=== PATIENT | female | born 1990 | race Two or more races ===

== ENCOUNTER 2017-11-10 10:14 | Observation (INO) | payer MEDICAID ==
[2017-11-10] MEDS ORDERED: LR 1,000 ML IV ONE (10:36)
[2017-11-10] MEDS ORDERED: LIDOCAINE 1% 2 ML INJ ID PRN (10:36)
[2017-11-10] MEDS ORDERED: MIDAZOLAM 2 MG/2 ML VIAL IVP ONE (12:05)
--- NOTE | 2017-11-10 12:05 | PDANEPAE ---
ANE History of Present Illness Robotic assisted Hysterectomy ANE Past Medical History - Cardiovascular History Hx Hypertension: No Hx Arrhythmias: No Hx Chest Pain: No Hx Coronary Artery / Peripheral Vascular Disease: Yes Hx CHF / Valvular Disease: No Hx Palpitations: No Cardiovascular History Comment: aortic stenosis- sees airline transport pilot in [place] - Pulmonary History Hx COPD: No Hx Asthma/Reactive Airway Disease: No Hx Recent Upper Respiratory Infection: No Hx Oxygen in Use at Home: No Hx Sleep Apnea: No Sleep Apnea Screening Result - Last Documented: Negative - Neurologic History Hx Cerebrovascular Accident: No Hx Seizures: No Hx Dementia: No - Endocrine History Hx Diabetes: No Hypothyroid: No Hyperthyroid: No Obesity: no - Renal History Hx Renal Disorders: Yes Renal History Comment: chronic kidney stones. hx of bladder dilations. interstitial cystitis. bladder spasms - Liver History Hx Hepatic Disorders: No - Neurological & Psychiatric Hx Hx Neurological and Psychiatric Disorders: Yes Neurological / Psychiatric History Comment: anxiety - Cancer History Hx Cancer: No - Congenital Disorder History Hx Congenital Disorders: No - GI History GERD: no Hx Gastrointestinal Disorders: Yes Gastrointestinal History Comment: occ constipation- on linzess - Other Health History Other Health History: chronic pain - Chronic Pain History Chronic Pain: Yes (kidneys, pelvic pain, back) - Surgical History Prior Surgeries: angioplasty at 3 mos, 13 yo. appy, ovary biopsy. kidney stones removed. bladder dilation. exp lap, lysis of adhesions and bladder dilation 03/2017 ANE Review of Systems Review of Systems: - Exercise capacity METS (RN): 4 METS ANE Patient History - Allergies Allergies/Adverse Reactions: tramadol Allergy (Verified 10/21/17 10:51) gets spacey and itchy - Home Medications Home medications: home medication list seen and reviewed Home Medications: DILAUDID 2 mg PO Q6H 10/21/17 [Last Taken 11/07/17] Linzess 145 mcg PO DAILY 10/21/17 [Last Taken 10/27/17] Vitamin D2 mg PO 10/21/17 [Last Taken 11/03/17] Zoloft 25mg (*) 25 mg PO HS 10/21/17 [Last Taken 11/09/17 08:00] oxyCODONE IR 15 mg PO Q6H 10/21/17 [Last Taken 11/09/17 16:00] - NPO status NPO Since - Liquids (Date): 11/09/17 NPO Since - Liquids (Time): 03:00 NPO Since - Solids (Date): 11/09/17 NPO Since - Solids (Time): 20:00 - Anes Hx Anes Hx: no prior problems - Smoking Hx Smoking Status: Never smoked Marijuana use: No - Alcohol Use Alcohol Use: None - Family Anes Hx Family Anes Hx: none Family Hx Anesthesia Complications: none ANE Labs/Vital Signs - Vital Signs Blood Pressure: 119/82 Heart Rate: 68 Respiratory Rate: 16 O2 Sat (%): 98 Height: 157.48 cm Weight: 63.503 kg ANE Physical Exam - Airway Neck exam: FROM Mallampati Score: Class 1 Mouth exam: normal dental/mouth exam - Pulmonary Pulmonary: no respiratory distress, no rales or rhonchi - Cardiovascular Cardiovascular: regular rate and rhythym, systolic murmur, diastolic murmur - ASA Status ASA Status: II ANE Anesthesia Plan Anesthesia Plan: general endotracheal anesthesia
--- NOTE | 2017-11-10 12:59 | PDGENHP ---
History and Physical History and Physical: Assessment and Plan: 1. Preoperative examination - CBC with Auto Differential; Future 2. Endometriosis determined by laparoscopy Melissa has extensive endometriosis especially throughout the posterior cul-de-sac , bilateral ovarian fossa is, and uterosacral ligaments. Given her intraoperative photos and description of the operative procedure I am certain she has persistent deep endometriosis which will continue to be resistant to medical management. Her best option is aggressive surgical excision. Because of her aortic stenosis she no longer desires children. As a result she is requesting the most definitive surgical treatment possible which likely will involve a hysterectomy with possible removal of her ovaries depending upon the extent of disease. We again reviewed all conservative and surgical options. At the end of our discussion informed consent was obtained. All questions were answered. 3. Dysmenorrhea 4. Dyspareunia, female Subjective: Patient ID: Melissa Davis is a 27 y.o. female who presents to [facility] for endometriosis. BAUDILIO Hoovers a 27-year-old para 1 woman who presents for endometriosis. She developed pelvic pain starting around age 16. She later underwent an appendectomy where the surgeon found endometriosis in the pelvis. Apparently an ovary was biopsied documenting endometriosis. She has tried multiple control pills none of which have resulted in significant benefit. Currently she is not on any contraception. She discontinued the pill secondary to bloating and moodiness. She has tried Depo-Provera and NuvaRing also with no significant benefit. She has not been on Lupron in the past. Her medical history significant for it her aortic stenosis interstitial cystitis and recurrent kidney stones. She is under the care of a pain management physician taking Oxy IR15 mg,Dilaudid 2 mg,and Valium. She has undergone an appendectomy 2006 laparoscopy 2017 ureteroscopy with ureteral stent placement and 2 angioplasties. Her product design manager is Dr. Galdamez in [place]. She brought a copy of her intraoperative photos and OP note from March 2017. She has significant vesicular type endometriosis throughout the posterior cul-de-sac , bilateral uterosacral ligaments, pelvic sidewalls, as well as lesions on the right diaphragm. The surgeon fulgurated these lesions.. She had no relief of her symptoms requiring continued narcotic use. Given her persistent symptoms and description of the operative procedure I am certain she has persistent deep endometriosis as well as tissue contraction and scarring.We reviewed all conservative and surgical options. She wishes to proceed with robotic excision of endometriosis. Given her aortic stenosis and the significant risk of , she has completed her childbearing. As a result she is requesting hysterectomy as well. PastMedicalHistory Past Medical History: Diagnosis Date Aortic stenosis bicuspid aortic valve status post valvuloplasty x2 at 3 months and 13 years of age Congenital anomaly of heart aortic stenosis Endometriosis Heart disease aortic stenosis Interstitial cystitis Kidney stone chronic stones PastSurgicalHistory Past Surgical History: Procedure Laterality Date AORTIC VALVULOPLASTY at 3 months of age and again at age 13 BLADDER SURGERY 2011 for interstitial cystitis CYSTOURETHROSCOPY 2013 with removal of kidney stone KIDNEY STONE SURGERY LAPAROSCOPIC APPENDECTOMY 2006 appendix was normal, endometriosis was found to be the cause of pain CURRENT MEDICATIONS: Current Outpatient Prescriptions Medication Sig diazePAM (VALIUM) 5 mg tablet Take 5 mg by mouth daily as needed. HYDROmorphone (DILAUDID) 2 mg tablet Take 2 mg by mouth every 4 hours as needed. oxycodone 20 mg IR tablet Take 20 mg by mouth every 6 hours as needed for Pain. No current facility-administered medications for this visit. Facility-Administered Medications Ordered in Other Visits Medication Dose Route Frequency Provider Last Rate Last Dose fentaNYL PF (SUBLIMAZE) injection Epidural PRN Forrest Barbosa MD 50 mcg at 09/26/16 1753 lidocaine-epinephrine 1.5 %-1:200,000 injection Epidural PRN Forrest Barbosa MD 3 mL at 09/26/16 1750 ALLERGIES: Tramadol I have reviewed, verified and agree with the past medical, surgical, , family, social and ROS history as documented by the RN today. Objective: Vital Signs: Visit Vitals BP 104/60 Pulse 88 Temp 36.6 C (97.9 F) (Temporal Artery) Resp 14 Ht 1.575 m (5' 2") Wt 68.1 kg (150 lb 3.2 oz) SpO2 98% BMI 27.47 kg/m2 Physical Exam Gen: This is an alert, well developed woman in no distress. Neuro: She moves all extremities. Psych: She is appropriate, oriented, with normal affect. Neck: No thyroid enlargement, adenopathy, or tenderness. Lungs: Clear to ascultation, no wheezes or rales. Heart: Regular rate and rhythm without obvious murmurs. Abdomen: Soft, non-tender, without guarding, rebound, or masses. Extremities: No edema or cyanosis. Pelvic: Normal external genitalia. Non-gaping introitus, vagina without discharge, adequately estrogenized, no significant prolapse. Cervix without lesions or discharge. Uterus normal sized, retroverted with minimal mobility. She is exquisitely tender surrounding the cervix especially posteriorly. The posterior cul-de-sac is exquisitely tender as well as both uterosacral ligaments. She has fine nodularity along both uterosacral ligaments. The adnexa are tender without obvious enlargement. No rectovaginal nodules are palpable. DATA: I have reviewed the pertinent medical records. TIME/COMMUNICATION: I personally spent a total of 60 minutes. Of that 45 minutes was counseling/ coordination of patient's care. See my note above for details. Lux Justin MD Board Certified Female Pelvic Medicine and Reconstructive Surgery Director of Minimally Invasive Gynecologic Surgery, [facility] Surgeon in Minimally Invasive Gynecologic Surgery [facility] Surgeon in Robotic Surgery
[2017-11-10] MEDS ORDERED: SCOPOLAMINE HYDROBROMIDE 1 MG/3 DAYS PATCH TD ONE (13:22)
[2017-11-10] MEDS ORDERED: SCOPOLAMINE HYDROBROMIDE 1 MG/3 DAYS PATCH TD SCH (13:30)
[2017-11-10] MEDS ORDERED: PROPOFOL 200 MG/20 ML VIAL ONE (13:32)
[2017-11-10] MEDS ORDERED: PROPOFOL/EMULSION 500 MG/50 ML BOTTLE IV ONE ×2 (13:32→14:04)
[2017-11-10] MEDS ORDERED: fentaNYL 250 MCG/5 ML INJ ONE (13:32)
[2017-11-10] MEDS ORDERED: BUPIVACAINE/EPI 0.5% 30 ML SDV ONE (13:36)
[2017-11-10] MEDS ORDERED: GLYCOPYRROLATE 0.2 MG/1 ML VIAL ONE (13:40)
[2017-11-10] MEDS ORDERED: ceFAZolin 1 GM VIAL ONE ×2 (13:51)
[2017-11-10] MEDS ORDERED: fentaNYL 100 MCG/2 ML INJ ONE ×3 (14:04→16:51)
[2017-11-10] MEDS ORDERED: HYDROmorphONE/DILAUDID 2 MG/ML INJ ONE ×2 (14:04→15:22)
[2017-11-10] MEDS ORDERED: ONDANSETRON 4 MG/2 ML VIAL ONE ×2 (15:19→17:08)
[2017-11-10] MEDS ORDERED: DIAZEPAM 10 MG/2 ML SYR IVP PRN ×2 (15:29→15:46)
[2017-11-10] MEDS ORDERED: PROMETHAZINE HCL 25 MG/ML INJ IVP PRN ×2 (15:29→15:42)
[2017-11-10] MEDS ORDERED: ONDANSETRON 4 MG/2 ML VIAL IVP PRN ×2 (15:29→15:42)
[2017-11-10] MEDS ORDERED: LR 1,000 ML IV SCH (15:30)
--- NOTE | 2017-11-10 15:34 | POSTOPPROG ---
Post Op Note Date of Operation: 11/10/17 Surgeon: Lux Justin Lithographic Printing Machinist: Honey Marte Anesthesiologist: Jemma Blake Anesthesia: GET(General Endotracheal) Pre-op Diagnosis: Endometriosis Post-op Diagnosis: same Procedure: Robotic hyst/BSO, bilat ureterolysis, excise endo, colpopexy, cysto Findings: Ureters function at end of case Inf/Abcess present in the surg proc area at time of surgery?: No EBL: Minimal Complications: None
[2017-11-10] MEDS ORDERED: MEPERIDINE 25 MG/ML SYR IVP PRN (15:42)
[2017-11-10] MEDS ORDERED: OXYCODONE/APAP 5/325 TAB PO PRN (15:42)
[2017-11-10] MEDS ORDERED: HYDROCODONE/APAP 5/325 TAB PO PRN (15:42)
[2017-11-10] MEDS ORDERED: NALOXONE HCL 0.4 MG/ML INJ IVP PRN (15:42)
[2017-11-10] MEDS ORDERED: DIAZEPAM 10 MG/2 ML SYR ONE (15:48)
[2017-11-10] MEDS: fentaNYL 100 MCG/2 ML INJ IVP PRN ×4 (15:50→17:18)
[2017-11-10] MEDS ORDERED: ceFAZolin 2 GM/SWFI 2 GM/20 ML SYR IVP ONE (15:52)
[2017-11-10] MEDS ORDERED: PHENAZOPYRIDINE HCL 200 MG TAB PO ONE (15:52)
[2017-11-10] MEDS: DIAZEPAM 10 MG/2 ML SYR IVP PRN ×2 (15:58→16:07)
[2017-11-10] MEDS ORDERED: HYDROmorphONE/DILAUDID 1 MG/ML INJ ONE (16:05)
[2017-11-10] MEDS ORDERED: HYDROCODONE/APAP 5/325 TAB ONE (16:05)
[2017-11-10] MEDS: HYDROmorphONE/DILAUDID 1 MG/ML INJ IVP PRN ×4 (16:07→21:59)
[2017-11-10] MEDS: SIMETHICONE 80 MG TAB CHEW PO SCH ×2 (19:58→21:53)
[2017-11-10] MEDS: oxyCODONE IR 5 MG TAB PO PRN (19:58)
[2017-11-10] MEDS: KETOROLAC 30 MG/1 ML SDV IVP SCH (21:53)
[2017-11-10] MEDS: DOCUSATE SODIUM 100 MG CAP PO SCH (21:53)
[2017-11-11] MEDS: HYDROmorphONE/DILAUDID 1 MG/ML INJ IVP PRN ×2 (00:59→06:09)
[2017-11-11] MEDS: oxyCODONE IR 5 MG TAB PO PRN ×2 (02:02→08:02)
[2017-11-11] MEDS: KETOROLAC 30 MG/1 ML SDV IVP SCH ×2 (03:01→09:09)
[2017-11-11] MEDS: DOCUSATE SODIUM 100 MG CAP PO SCH (08:02)
[2017-11-11 08:38] VITALS: TEMP 98
[2017-11-11 09:21] VITALS: BP 102/68; PULSE 89; RESP 20; O2SAT 97
[2017-11-11] MEDS ORDERED: ESTRADIOL 1 MG TAB PO SCH (09:45)
[2017-11-11] MEDS: SIMETHICONE 80 MG TAB CHEW PO SCH (10:43)
--- NOTE | 2017-11-11 11:23 | GDS ---
[f rep st] DISCHARGE SUMMARY DISCHARGE DIAGNOSES: 1. Endometriosis. 2. Dysmenorrhea. 3. Pelvic pain. PROCEDURES: 1. Robotic-assisted total laparoscopic hysterectomy, bilateral salpingo-oophorectomy. 2. Bilateral ureterolysis. 3. Excision of extensive endometriosis in the posterior cul-de-sac and bilateral ovarian fossae. 4. Uterosacral ligament colpopexy. 5. Cystoscopy. BRIEF HISTORY AND HOSPITAL COURSE: The patient is a 27-year-old female with a long history of pelvic pain secondary to endometriosis. She was taken to the operating room on 11/10/2017, where she under went the above-mentioned procedures without complications. Her postoperative course was uneventful. She was ambulating, voiding, and tolerating a general diet. She was discharged home on postoperative day #1 in good condition. Medications included her baseline pain and management regimen of Oxy-IR 20 mg 3 times per day and Dil audid 4 mg 3 times per day. I prescribed an additional Oxy-IR starting at 20 mg 3 times per day for 4 days, then 15 mg 3 times per day for 4 days, then 10 mg 3 times per day for 4 days, finally 5 mg 3 times per day for 4 days. I also prescribed Dilaudid 4 mg 3 times per day for 4 days with a similar tapering regimen over 16 days as the Oxy-IR. I spoke with her maintenance painter, Andrae warren in [place], to notify her of the additional narcotic prescriptions to cover her postoperat joe pain. The patient is to call me in 2 weeks with an update of her condition. She will return to the office in 6 weeks. She also was prescribed estradiol 1 mg daily for hormone replacement therapy. Copy requested to: [facility] [place] /[id number]/MODL
--- NOTE | 2017-11-11 14:19 | GOP ---
[f rep st] OPERATIVE REPORT DATE OF OPERATION: 11/10/2017 SURGEON: Lux Justin MD [employer] MAKER INSTALLER: JUSTIN Elias ANESTHESIA: General. PREOPERATIVE DIAGNOSIS: 1. Endometriosis. 2. Pelvic pain. 3. Uterine prolapse. POSTOPERATIVE DIAGNOSIS: Same. PROCEDURE PERFORMED: 1. Robot excision of extensive endometriosis throughout posterior cul-de-sac and bilateral ovarian fossas. 2. Total laparoscopic hysterectomy 3. Bilateral ureterolysis 4. Uterosacral ligament colpopexy. 5. Cystoscopy. FINDINGS: Endometriosis throughout pelvis. SPECIMENS: 1. Uterus, tubes and ovaries. 1. Cul-de-sac peritoneum with endometriosis. 2. ESTIMATED BLOOD LOSS: Scant. DESCRIPTION OF PROCEDURE: The patient was taken to the operating room where she was identified. General anesthesia was administered and found to be adequate. She was placed in the lithotomy position and prepared and draped in normal sterile fashion. A Shobutt Babiesare uterine manipulator was placed into the endometrial cavity and sutured to the cervix. A Pineda catheter was then placed. A 10 mm incision was made within the umbilicus. The Veress needle with the CO2 gas flowing was advanced into the peritoneal cavity. The abdomen was then insufflated with carbon dioxide gas. The 12 mm trocar followed by the laparoscope were then inserted. The upper abdomen was unremarkable. There appeared to be endometriosis under the left hemidiaphragm. No endometriosis was seen on either diaphragm, liver, stomach, gallbladder, or upper abdominal intestines. Two lateral ports were placed on the right and one on the left under direct visualization. She then was placed in Trendelenburg position and the da Destini robot docked on the left side. The instruments were then brought into the abdominal cavity under direct visualization. She was found to have endometriosis throughout the posterior cul-de-sac and bilateral ovarian fossas. The left round ligament was divided. The anterior leaf of the broad ligament was incised to the bifurcation of the left common iliac vessels. The course of the ureter was noted bilaterally throughout the case. A window was created in the medial leaf of the broad ligament anterior to the ureter to skeletonize the infundibulopelvic vessels. They were then cauterized and transected. The anterior leaf of the broad ligament was then incised over the left uterine vessels and across the cervix. The bladder was gently dissected off the cervix and upper vagina. The left uterine vasculature was then cauterized and transected. The exact same procedure was performed on the patient's right side. Attention was then turned to the endometriosis throughout the pelvis. A bilateral ureterolysis was required to safely remove the peritoneum with endometriosis without injuring the ureters. The pelvic peritoneum at the pelvic brim had previously been incised. The ureters were gently dissected free. They were lateralized from the pelvic brim all the way down to the bladder. Once this was accomplished, the overlying peritoneum and endometriosis were completely excised off both ovarian fossas. The entire cul-de-sac peritoneum and from the distal rectum up to the cervix and laterally to the uterosacral ligaments was completely excised. A circumferential colpotomy incision was then made with the hot naheed, and all specimens were removed through the vagina. The vaginal cuff was then closed with a running suture of 0 V-Loc 180. A bilateral uterosacral ligament colpopexy was performed by attaching the lateral aspects of the vaginal cuff to the ipsilateral uterosacral ligaments near their insertion into the coccygeal-sacrospinous ligament complexes. The pelvis was then irrigated with sterile saline, and hemostasis was present. The robot was then undocked. The fascia was closed with 0 Vicryl, skin with 4-0 Monocryl and surgical adhesive. Cystoscopy was then performed. Both ureters had vigorous jets of urine. There was no evidence of bladder nor urethral injury seen. No sutures seen within the bladder. No obvious pathology was seen. Anesthesia was then reversed, and the patient taken to PACU awake, in stable condition. COMPLICATIONS: None. DISPOSITION: Patient stable to PACU. /[id number]/MODL MTDD
--- NOTE | 2017-11-12 17:22 | POSTANESTH ---
Post Anesthetic Evaluation Cardiovascular Status: Normal, Stable Respiratory Status: Normal, Stable Level of Consciousness/Mental Status: Can Participate in Eval Pain Control: Adequate, Prn Tx Ordered Nausea/Vomiting Control: Adequate, Prn Tx Ordered Complications Possibly Related to Anesthesia: None Noted
== END 2017-11-11 12:25 | disposition home or self-care (01) ==
LOC: FSGY 10:14 → F3E 15:30 → FOB 18:13
PROVIDERS: ADMIT Obstetrics & Gynecology; ATTEND Obstetrics & Gynecology
PROC: 0U5F4ZZ Destruction of Cul-de-sac, Percutaneous Endoscopic Approach (ICD-10-PCS; principal; 2017-11-10 12:45)
PROC: 0U524ZZ Destruction of Bilateral Ovaries, Percutaneous Endoscopic Approach (ICD-10-PCS; principal; 2017-11-10 12:45)
PROC: 0USG4ZZ Reposition Vagina, Percutaneous Endoscopic Approach (ICD-10-PCS; principal; 2017-11-10 12:45)
PROC: 0UT94ZZ Resection of Uterus, Percutaneous Endoscopic Approach (ICD-10-PCS; principal; 2017-11-10 12:45)
PROC: 0UT24ZZ Resection of Bilateral Ovaries, Percutaneous Endoscopic Approach (ICD-10-PCS; principal; 2017-11-10 12:45)
PROC: 0UT74ZZ Resection of Bilateral Fallopian Tubes, Percutaneous Endoscopic Approach (ICD-10-PCS; principal; 2017-11-10 12:45)
DX: N80.3 Endometriosis of pelvic peritoneum (principal); N80.1 Endometriosis of ovary; N94.6 Dysmenorrhea, unspecified
CPT/HCPCS: 57425; 58571; 58662; G0378; J0690; J1170; J1885; J2250; J2405; J2704; J3010